=== PATIENT | male | born 1950 | race Caucasian/White ===

== ENCOUNTER 2016-12-10 16:23 | Emergency (ER) | payer MEDICARE ==
[2016-12-10 17:03] LABS: HEMOGLOBIN 16.8 gm/dl (14.0-17.5); RED BLOOD COUNT 5.71 M/UL (4.20-5.50); WHITE BLOOD COUNT 11.1 K/UL (4.5-11.0)
[2016-12-10 17:33] LABS: BUN/CREATININE RATIO 26 (0-10)
== END 2016-12-10 20:45 | disposition short-term general hospital (02) ==
LOC: ER1 16:23
PROVIDERS: Emergency Medicine
DX: I63.9 Cerebral infarction, unspecified (principal); I48.91 Unspecified atrial fibrillation; Z79.82 Long term (current) use of aspirin; Z79.02 Long term (current) use of antithrombotics/antiplatelets; Z79.899 Other long term (current) drug therapy
CPT/HCPCS: 36415; 70450; 71010; 80053; 82550; 82553; 83874; 84484; 85025; 85610; 85730; 93005; 96372; 96374; 96375; 96376; 99291; J1650